=== PATIENT | male | born 1950 | race Caucasian/White ===

== ENCOUNTER 2017-05-26 20:10 | Emergency (ER) | payer OTHER ==
[~2017-05-26] VITALS: Ht 182.9 cm; Wt 106.1 kg
[~2017-05-26 20:10] MED LIST: ALBU90OI INH; AMOX500 PO; ATOR10 PO; Aspir 8181 MG PO; Ativan0.5 MG PO; CYCL10 PO; Ceftriaxone2 G1 IV; DABI75 PO; DIGO.25 PO; DOCU100 PO; EXFORGE; FURO20 PO; Glimepiride2 MG PO; HYDACE10 PO; HYDACE5 PO; HYDCHL25 PO; INS70/30I; LEVEMIR FL100 UNIT/1 SQ; LORA1 PO; LORA2 PO; LOSA50 PO; METF500 PO; METO25 PO; OLME20 PO; OMEP20ER PO; PRODEXEL PO; RXLORA1 PO; SILD50TA PO; SITA100T2 PO; SPIR25 PO; TAMS.4ER PO; Zithromax250 MG PO
== END 2017-05-26 23:50 | disposition left against medical advice (07) ==
LOC: ER 20:10
DX: Z53.21 Procedure and treatment not carried out due to patient leaving prior to being seen by health care provider (principal)
CPT/HCPCS: 99281

== ENCOUNTER 2017-07-31 07:36 | Emergency (ER) | payer OTHER ==
[~2017-07-31] VITALS: Ht 182.9 cm; Wt 105.0 kg
[2017-07-31] MEDS ORDERED: JARDIANCE10 MG PO (09:02)
[2017-07-31 09:14] LABS: Source, Urine Clean Catch
[2017-07-31 09:19] LABS: Bilirubin, Urine Neg (Neg); Blood, Urine Neg (Neg); Glucose Qualitative, Urine 4+ (Neg); Ketones, Urine Neg (Neg); Leukocyte Esterase, Urine Neg (Neg); Nitrite, Urine Neg (Neg); Protein, Urine Neg (Neg); Urobilinogen, Urine NORM (Normal)
[2017-07-31 09:30] LABS: Appearance, Urine Clear (Clear); Color, Urine Pale Yellow (P-Yellow)
== END 2017-07-31 10:36 | disposition home or self-care (01) ==
LOC: ER 07:36
PROVIDERS: Emergency Medicine
DX: I10 Essential (primary) hypertension (principal); E11.9 Type 2 diabetes mellitus without complications; Z88.5 Allergy status to narcotic agent; Z79.4 Long term (current) use of insulin; Z79.82 Long term (current) use of aspirin; Z79.51 Long term (current) use of inhaled steroids; Z79.899 Other long term (current) drug therapy
CPT/HCPCS: 36415; 81003; 82947; 84484; 93005; 93010; 99284

== ENCOUNTER 2018-07-21 01:51 | Emergency (ER) | payer OTHER ==
[~2018-07-21] VITALS: Ht 182.9 cm; Wt 104.3 kg
[~2018-07-21 01:51] MED LIST changes: +AMLO10 PO; +JARDIANCE10 MG PO; +LO-DOSE ASPIRIN81 MG PO; +LOSARTAN POTAS100 MG PO; +Metformin HCl1000 MG PO; +Metoprolol Tar100 MG PO; +TRULICITY0.75 MG/0. SQ
== END 2018-07-21 04:28 | disposition home or self-care (01) ==
LOC: ER 01:51
DX: M54.5 Low back pain (principal); Z88.5 Allergy status to narcotic agent; Z79.899 Other long term (current) drug therapy; Z79.84 Long term (current) use of oral hypoglycemic drugs; Z79.82 Long term (current) use of aspirin; I10 Essential (primary) hypertension; E11.9 Type 2 diabetes mellitus without complications; Z87.891 Personal history of nicotine dependence
CPT/HCPCS: 96372; 99283-25; J1885

== ENCOUNTER 2018-09-02 13:03 | Emergency (ER) | payer OTHER ==
[~2018-09-02] VITALS: Ht 180.3 cm; Wt 99.8 kg
[2018-09-02 13:56] LABS: BASOPHILS ABSOLUTE AUTO 0.08 K/mm3 (0.00-0.23); BASOPHILS PERCENT AUTO 1 % (0-2); EOSINOPHILS ABSOLUTE AUTO 0.27 K/mm3 (0.00-0.68); EOSINOPHILS PERCENT AUTO 3 % (0-6); Hematocrit 52.3 % (37.0-53.0); Hemoglobin 17.7 g/dL (13.5-17.5); IMMATURE GRAN ABSOLUTE AUTO 0.03 K/mm3 (0.00-0.10); IMMATURE GRAN PERCENT AUTO 0 % (0-1); LYMPHOCYTES ABSOLUTE AUTO 2.28 K/mm3 (0.84-5.20); LYMPHOCYTES PERCENT AUTO 24 % (21-46); MONOCYTES ABSOLUTE AUTO 0.84 K/mm3 (0.16-1.47); MONOCYTES PERCENT AUTO 9 % (4-13); Mean Corpuscular HGB 30.6 pg (26.0-34.0); Mean Corpuscular HGB Conc 33.8 g/dL (31.5-36.5); Mean Corpuscular Volume 90 fL (80-100); Mean Platelet Volume 10.5 fL (9.1-12.4); NEUTROPHILS ABSOLUTE AUTO 6.17 K/mm3 (1.96-9.15); NEUTROPHILS PERCENT AUTO 64 % (41-73); Platelet Count 241 K/mm3 (150-400); RDW Coefficient Variation 13.7 % (11.7-14.2); RDW Standard Deviation 45.6 fL (35.1-46.3); Red Blood Cell Count 5.79 M/mm3 (4.30-5.90); White Blood Cell Count 9.67 K/mm3 (4.00-11.30)
[2018-09-02 14:10] LABS: International Normalized Ratio 0.93; Prothrombin Time Results 9.7 Sec (9.7-11.5)
[2018-09-02 14:16] LABS: Alanine Aminotransfer (ALT/SGP 33 U/L (12-78); Alk Phos 131 U/L (50-136); Anion Gap 10 mmol/L (6-16); Aspartate Aminotrans (AST/SGOT 30 U/L (12-37); Bilirubin, Total 0.4 mg/dL (0.1-1.0); Blood Urea Nitrogen 17 mg/dL (8-24); Bun/Creatinine Ratio 19.9 (12.0-20.0); CO2, Blood 27 mmol/L (21-32); Calcium, Blood 9.7 mg/dL (8.5-10.1); Chloride, Blood 100 mmol/L (98-108); Creatinine, Blood 0.86 mg/dL (0.60-1.20); Glomerular Filtration Rate >60 (60-); Glucose, Blood 308 mg/dL (70-99); Potassium, Blood 4.2 mmol/L (3.5-5.5); Sodium, Blood 137 mmol/L (136-145)
[2018-09-02] MEDS ORDERED: JARDIANCE25 MG PO (15:50)
== END 2018-09-02 15:48 | disposition home or self-care (01) ==
LOC: ER 13:03
PROVIDERS: Physician Assistant
DX: E87.8 Other disorders of electrolyte and fluid balance, not elsewhere classified (principal); I25.10 Atherosclerotic heart disease of native coronary artery without angina pectoris; Z86.73 Personal history of transient ischemic attack (TIA), and cerebral infarction without residual deficits; Z88.5 Allergy status to narcotic agent; Z79.899 Other long term (current) drug therapy; Z79.84 Long term (current) use of oral hypoglycemic drugs; Z79.82 Long term (current) use of aspirin; I10 Essential (primary) hypertension; E11.9 Type 2 diabetes mellitus without complications; I25.2 Old myocardial infarction; Z87.891 Personal history of nicotine dependence
CPT/HCPCS: 36415; 70450; 80053; 84484; 85025; 85610; 85730; 93005; 93010; 99284-25

== ENCOUNTER 2018-09-03 12:12 | Emergency (ER) | payer OTHER ==
[~2018-09-03] VITALS: Ht 180.3 cm; Wt 99.8 kg
[~2018-09-03 12:12] MED LIST changes: +JARDIANCE25 MG PO
== END 2018-09-03 14:40 | disposition home or self-care (01) ==
LOC: ER 12:12
DX: I63.9 Cerebral infarction, unspecified (principal); I10 Essential (primary) hypertension; E11.9 Type 2 diabetes mellitus without complications; I48.91 Unspecified atrial fibrillation; E78.5 Hyperlipidemia, unspecified; Z87.891 Personal history of nicotine dependence
CPT/HCPCS: 99283

== ENCOUNTER 2021-02-01 16:22 | Emergency (ER) | payer OTHER ==
[~2021-02-01] VITALS: Ht 177.8 cm; Wt 104.3 kg
== END 2021-02-01 18:23 | disposition home or self-care (01) ==
LOC: ER 16:22
DX: S66.329A Laceration of extensor muscle, fascia and tendon of unspecified finger at wrist and hand level, initial encounter (principal); I10 Essential (primary) hypertension; E11.9 Type 2 diabetes mellitus without complications; I25.10 Atherosclerotic heart disease of native coronary artery without angina pectoris; I48.91 Unspecified atrial fibrillation; E78.5 Hyperlipidemia, unspecified; Z23 Encounter for immunization; Z88.5 Allergy status to narcotic agent; Z79.899 Other long term (current) drug therapy; Z79.84 Long term (current) use of oral hypoglycemic drugs; Z79.82 Long term (current) use of aspirin; W27.0XXA Contact with workbench tool, initial encounter
CPT/HCPCS: 12002; 73130; 90471; 90714; 99283-25

== ENCOUNTER 2023-05-19 04:45 | Inpatient (IN) | payer MEDICARE ==
[~2023-05-19] VITALS: Ht 177.8 cm; Wt 91.0 kg
[~2023-05-19 04:45] MED LIST changes: +INSULANI SC
[2023-05-19 05:32] LABS: BASOPHILS ABSOLUTE AUTO 0.07 K/mm3 (0.00-0.23); BASOPHILS PERCENT AUTO 1 % (0-2); EOSINOPHILS ABSOLUTE AUTO 0.38 K/mm3 (0.00-0.68); EOSINOPHILS PERCENT AUTO 4 % (0-6); Hematocrit 49.2 % (37.0-53.0); Hemoglobin 16.5 g/dL (13.5-17.5); IMMATURE GRAN ABSOLUTE AUTO 0.04 K/mm3 (0.00-0.10); IMMATURE GRAN PERCENT AUTO 0 % (0-1); LYMPHOCYTES PERCENT AUTO 21 % (21-46); MONOCYTES ABSOLUTE AUTO 0.95 K/mm3 (0.16-1.47); MONOCYTES PERCENT AUTO 10 % (4-13); Mean Corpuscular HGB 30.4 pg (26.0-34.0); Mean Corpuscular HGB Conc 33.5 g/dL (31.5-36.5); Mean Corpuscular Volume 91 fL (80-100); Mean Platelet Volume 10.3 fL (9.1-12.4); NEUTROPHILS PERCENT AUTO 64 % (41-73); Platelet Count 174 K/mm3 (150-400); RDW Coefficient Variation 13.8 % (11.7-14.2); RDW Standard Deviation 45.4 fL (35.1-46.3); Red Blood Cell Count 5.42 M/mm3 (4.30-5.90); White Blood Cell Count 9.84 K/mm3 (4.00-11.30)
[2023-05-19 05:56] LABS: Albumin, Blood 3.7 g/dL (3.4-5.0); Bilirubin, Total 0.7 mg/dL (0.1-1.0); Bun/Creatinine Ratio 15.7 (12.0-20.0); Creatinine, Blood 1.08 mg/dL (0.60-1.20); Globulin, Blood 3.7 g/dL (2.2-4.0); Potassium, Blood 4.3 mmol/L (3.5-5.5); Total Protein, Blood 7.4 g/dL (6.4-8.2)
[2023-05-19] MEDS ORDERED: IRBE150 PO (09:40)
[2023-05-19] MEDS ORDERED: PIOGLITAZONE HC15 MG PO (09:40)
[2023-05-19] MEDS ORDERED: SILDENAFIL CIT100 MG PO (09:41)
[2023-05-19] MEDS ORDERED: DICLOFENAC SODI50 GM TP (09:48)
[2023-05-19 10:15] VITALS: BP 161/80
== END 2023-05-19 12:29 | disposition home or self-care (01) | DRG 304 ==
LOC: ER 04:45 → ERHOLD 07:57
PROVIDERS: Emergency Medicine; ADMIT Hospitalist
DX: I16.1 Hypertensive emergency (principal); I50.21 Acute systolic (congestive) heart failure; I16.0 Hypertensive urgency; I25.10 Atherosclerotic heart disease of native coronary artery without angina pectoris; I48.91 Unspecified atrial fibrillation; I11.0 Hypertensive heart disease with heart failure; E11.9 Type 2 diabetes mellitus without complications; E78.5 Hyperlipidemia, unspecified; F40.240 Claustrophobia; F15.10 Other stimulant abuse, uncomplicated; R91.1 Solitary pulmonary nodule; Z88.8 Allergy status to other drugs, medicaments and biological substances; Z88.5 Allergy status to narcotic agent; Z79.84 Long term (current) use of oral hypoglycemic drugs; Z79.899 Other long term (current) drug therapy; Z79.4 Long term (current) use of insulin; Z71.51 Drug abuse counseling and surveillance of drug abuser; Z95.1 Presence of aortocoronary bypass graft; Z98.890 Other specified postprocedural states; Z87.891 Personal history of nicotine dependence
CPT/HCPCS: 71046; 80053; 83880; 84484; 85025; 93005; 93010; 96374; 96375; 99285-25; A9270; J0360; J1815; J1940

== ENCOUNTER 2023-05-19 18:45 | Emergency (ER) | payer MEDICARE ==
[~2023-05-19] VITALS: Ht 177.8 cm; Wt 106.6 kg
[~2023-05-19 18:45] MED LIST changes: +DICLOFENAC SODI50 GM TP; +IRBE150 PO; +PIOGLITAZONE HC15 MG PO; +SILDENAFIL CIT100 MG PO
[2023-05-19 23:09] VITALS: BP 169/92
== END 2023-05-19 23:20 | disposition left against medical advice (07) ==
LOC: ER 18:45
DX: R06.02 Shortness of breath (principal); Z53.29 Procedure and treatment not carried out because of patient's decision for other reasons
CPT/HCPCS: 99281

== ENCOUNTER 2023-05-21 09:46 | Observation (INO) | payer MEDICARE ==
[2023-05-21 11:22] LABS: BASOPHILS ABSOLUTE AUTO 0.06 K/mm3 (0.00-0.23); BASOPHILS PERCENT AUTO 1 % (0-2); EOSINOPHILS ABSOLUTE AUTO 0.31 K/mm3 (0.00-0.68); EOSINOPHILS PERCENT AUTO 3 % (0-6); Hematocrit 51.6 % (37.0-53.0); Hemoglobin 17.2 g/dL (13.5-17.5); IMMATURE GRAN ABSOLUTE AUTO 0.07 K/mm3 (0.00-0.10); IMMATURE GRAN PERCENT AUTO 1 % (0-1); LYMPHOCYTES ABSOLUTE AUTO 2.21 K/mm3 (0.84-5.20); LYMPHOCYTES PERCENT AUTO 18 % (21-46); MONOCYTES PERCENT AUTO 8 % (4-13); Mean Corpuscular HGB 30.1 pg (26.0-34.0); Mean Corpuscular HGB Conc 33.3 g/dL (31.5-36.5); Mean Corpuscular Volume 90 fL (80-100); Mean Platelet Volume 10.4 fL (9.1-12.4); NEUTROPHILS ABSOLUTE AUTO 8.94 K/mm3 (1.96-9.15); NEUTROPHILS PERCENT AUTO 71 % (41-73); Platelet Count 205 K/mm3 (150-400); RDW Coefficient Variation 13.8 % (11.7-14.2); RDW Standard Deviation 45.4 fL (35.1-46.3); Red Blood Cell Count 5.72 M/mm3 (4.30-5.90); White Blood Cell Count 12.59 K/mm3 (4.00-11.30)
[2023-05-21 11:46] LABS: Albumin, Blood 3.8 g/dL (3.4-5.0); Bilirubin, Total 0.7 mg/dL (0.1-1.0); Bun/Creatinine Ratio 20.8 (12.0-20.0); Calcium, Blood 9.7 mg/dL (8.5-10.1); Creatinine, Blood 0.91 mg/dL (0.60-1.20); Globulin, Blood 3.9 g/dL (2.2-4.0); Potassium, Blood 4.6 mmol/L (3.5-5.5); Total Protein, Blood 7.7 g/dL (6.4-8.2)
[2023-05-21 17:53] VITALS: BP 162/96
[2023-05-21 20:06] VITALS: BP 134/55
[2023-05-22 03:25] VITALS: BP 150/106
[2023-05-22 03:27] VITALS: BP 174/84
[2023-05-22 05:41] LABS: BASOPHILS ABSOLUTE AUTO 0.07 K/mm3 (0.00-0.23); BASOPHILS PERCENT AUTO 1 % (0-2); EOSINOPHILS ABSOLUTE AUTO 0.28 K/mm3 (0.00-0.68); EOSINOPHILS PERCENT AUTO 2 % (0-6); Hematocrit 51.4 % (37.0-53.0); Hemoglobin 17.1 g/dL (13.5-17.5); IMMATURE GRAN ABSOLUTE AUTO 0.05 K/mm3 (0.00-0.10); IMMATURE GRAN PERCENT AUTO 0 % (0-1); LYMPHOCYTES PERCENT AUTO 20 % (21-46); MONOCYTES ABSOLUTE AUTO 1.17 K/mm3 (0.16-1.47); MONOCYTES PERCENT AUTO 10 % (4-13); Mean Corpuscular HGB 30.1 pg (26.0-34.0); Mean Corpuscular HGB Conc 33.3 g/dL (31.5-36.5); Mean Corpuscular Volume 91 fL (80-100); Mean Platelet Volume 10.6 fL (9.1-12.4); NEUTROPHILS ABSOLUTE AUTO 8.13 K/mm3 (1.96-9.15); NEUTROPHILS PERCENT AUTO 67 % (41-73); Platelet Count 196 K/mm3 (150-400); RDW Coefficient Variation 13.6 % (11.7-14.2); RDW Standard Deviation 45.1 fL (35.1-46.3); Red Blood Cell Count 5.68 M/mm3 (4.30-5.90)
[2023-05-22 06:12] LABS: Bun/Creatinine Ratio 21.8 (12.0-20.0); Calcium, Blood 9.7 mg/dL (8.5-10.1); Creatinine, Blood 1.19 mg/dL (0.60-1.20); Potassium, Blood 3.9 mmol/L (3.5-5.5); Thyroid Stimulating Hormone 1.19 uIU/mL (0.360-4.800)
[2023-05-22 08:16] VITALS: BP 213/117
[2023-05-22] MEDS ORDERED: HYDCHL25 PO (08:58)
[2023-05-22] MEDS ORDERED: 1/2 NS 250ml250 ML (08:58)
[2023-05-22] MEDS ORDERED: Vitamin D1000 UNI1 PO (08:59)
[2023-05-22] MEDS ORDERED: ASPI81CH PO (09:00)
[2023-05-22] MEDS ORDERED: AMLO10 PO (09:01)
[2023-05-22 10:00] VITALS: BP 156/101
[2023-05-22 11:43] VITALS: BP 150/101
[2023-05-22] MEDS ORDERED: Naltrexone HCl50 MG PO (14:23)
[2023-05-22] MEDS ORDERED: BUPR150ER PO (14:23)
[2023-05-22] MEDS ORDERED: FURO40 PO (14:24)
== END 2023-05-22 14:37 | disposition home or self-care (01) ==
LOC: ER 09:46 → MEDS 09:47
PROVIDERS: Student in an Organized Health Care Education/Training Program; ADMIT Internal Medicine
DX: I11.0 Hypertensive heart disease with heart failure (principal); I50.21 Acute systolic (congestive) heart failure; I16.0 Hypertensive urgency; E11.9 Type 2 diabetes mellitus without complications; I48.91 Unspecified atrial fibrillation; I25.10 Atherosclerotic heart disease of native coronary artery without angina pectoris; F15.10 Other stimulant abuse, uncomplicated; E78.5 Hyperlipidemia, unspecified; Z79.84 Long term (current) use of oral hypoglycemic drugs; Z79.4 Long term (current) use of insulin; Z79.899 Other long term (current) drug therapy; Z88.8 Allergy status to other drugs, medicaments and biological substances; Z88.5 Allergy status to narcotic agent
CPT/HCPCS: 36415; 80048; 80053; 82947; 83880; 84443; 85025; 93005; 93010; 93306; 96374; 96375; 96376; 99285-25; A9270; G0378; J1815; J1940; J2060

== ENCOUNTER → 2023-08-31 | Outpatient (CLI) | payer MEDICARE ==
[~2023-08-31] MED LIST changes: +1/2 NS 250ml250 ML; +ASPI81CH PO; +BUPR150ER PO; +FURO40 PO; +Naltrexone HCl50 MG PO; +Vitamin D1000 UNI1 PO
[2023-08-31 12:04] LABS: BASOPHILS ABSOLUTE AUTO 0.09 K/mm3 (0.00-0.23); BASOPHILS PERCENT AUTO 1 % (0-2); EOSINOPHILS ABSOLUTE AUTO 0.41 K/mm3 (0.00-0.68); EOSINOPHILS PERCENT AUTO 3 % (0-6); Hematocrit 42.7 % (37.0-53.0); Hemoglobin 14.4 g/dL (13.5-17.5); IMMATURE GRAN ABSOLUTE AUTO 0.07 K/mm3 (0.00-0.10); IMMATURE GRAN PERCENT AUTO 1 % (0-1); LYMPHOCYTES ABSOLUTE AUTO 2.63 K/mm3 (0.84-5.20); LYMPHOCYTES PERCENT AUTO 20 % (21-46); MONOCYTES ABSOLUTE AUTO 1.14 K/mm3 (0.16-1.47); MONOCYTES PERCENT AUTO 9 % (4-13); Mean Corpuscular HGB 30.5 pg (26.0-34.0); Mean Corpuscular HGB Conc 33.7 g/dL (31.5-36.5); Mean Corpuscular Volume 91 fL (80-100); Mean Platelet Volume 10.3 fL (9.1-12.4); NEUTROPHILS ABSOLUTE AUTO 9.05 K/mm3 (1.96-9.15); NEUTROPHILS PERCENT AUTO 68 % (41-73); Platelet Count 203 K/mm3 (150-400); RDW Coefficient Variation 13.6 % (11.7-14.2); RDW Standard Deviation 45.2 fL (35.1-46.3); Red Blood Cell Count 4.72 M/mm3 (4.30-5.90); White Blood Cell Count 13.39 K/mm3 (4.00-11.30)
[2023-08-31 12:16] LABS: Albumin, Blood 3.5 g/dL (3.4-5.0); Albumin/Globulin Ratio 0.9 (0.8-1.8); Bilirubin, Total 0.7 mg/dL (0.1-1.0); Bun/Creatinine Ratio 18.7 (12.0-20.0); Creatinine, Blood 1.39 mg/dL (0.60-1.20); Globulin, Blood 3.9 g/dL (2.2-4.0); Potassium, Blood 4.6 mmol/L (3.5-5.5); Total Protein, Blood 7.4 g/dL (6.4-8.2)
== END | disposition home or self-care (01) ==
LOC: LAB 11:55 → LAB SHORT 11:55
PROVIDERS: Chiropractor
DX: N49.2 Inflammatory disorders of scrotum (principal)
CPT/HCPCS: 80053; 85025; 87070; 87075; 87077; 87147; 87186; 87205

== ENCOUNTER → 2023-09-02 | Outpatient (CLI) | payer MEDICARE ==
[2023-09-02 12:59] LABS: BASOPHILS ABSOLUTE AUTO 0.03 K/mm3 (0.00-0.23); BASOPHILS PERCENT AUTO 0 % (0-2); EOSINOPHILS PERCENT AUTO 5 % (0-6); Hematocrit 44.5 % (37.0-53.0); Hemoglobin 15.1 g/dL (13.5-17.5); IMMATURE GRAN ABSOLUTE AUTO 0.05 K/mm3 (0.00-0.10); IMMATURE GRAN PERCENT AUTO 1 % (0-1); LYMPHOCYTES ABSOLUTE AUTO 1.17 K/mm3 (0.84-5.20); LYMPHOCYTES PERCENT AUTO 12 % (21-46); MONOCYTES ABSOLUTE AUTO 1.17 K/mm3 (0.16-1.47); MONOCYTES PERCENT AUTO 12 % (4-13); Mean Corpuscular HGB 30.3 pg (26.0-34.0); Mean Corpuscular HGB Conc 33.9 g/dL (31.5-36.5); Mean Corpuscular Volume 89 fL (80-100); Mean Platelet Volume 10.6 fL (9.1-12.4); NEUTROPHILS ABSOLUTE AUTO 6.89 K/mm3 (1.96-9.15); NEUTROPHILS PERCENT AUTO 70 % (41-73); Platelet Count 213 K/mm3 (150-400); RDW Coefficient Variation 13.9 % (11.7-14.2); RDW Standard Deviation 44.7 fL (35.1-46.3); Red Blood Cell Count 4.99 M/mm3 (4.30-5.90); White Blood Cell Count 9.81 K/mm3 (4.00-11.30)
[2023-09-02 13:08] LABS: Albumin, Blood 3.5 g/dL (3.4-5.0); Albumin/Globulin Ratio 0.8 (0.8-1.8); Bilirubin, Total 0.8 mg/dL (0.1-1.0); Calcium, Blood 9.5 mg/dL (8.5-10.1); Creatinine, Blood 1.78 mg/dL (0.60-1.20); Globulin, Blood 4.3 g/dL (2.2-4.0); Total Protein, Blood 7.8 g/dL (6.4-8.2)
== END | disposition home or self-care (01) ==
LOC: LAB SHORT 12:51 → LAB 12:51
PROVIDERS: Chiropractor
DX: N49.2 Inflammatory disorders of scrotum (principal)
CPT/HCPCS: 80053; 83605; 85025

== ENCOUNTER → 2024-12-18 | Outpatient (CLI) | payer MEDICARE | LOC: LAB 11:33 → LAB SHORT 11:33 | DX: L02.612 Cutaneous abscess of left foot (principal); E11.42 Type 2 diabetes mellitus with diabetic polyneuropathy; Z79.4 Long term (current) use of insulin | CPT/HCPCS: 87070; 87075; 87077; 87147; 87186; 87205 ==

== ENCOUNTER 2024-12-27 19:13 | Emergency (ER) | payer MEDICARE ==
[~2024-12-27] VITALS: Ht 180.3 cm; Wt 95.2 kg
[2024-12-27 19:49] LABS: pH Blood Venous 7.34 (7.34-7.37)
[2024-12-27 19:53] LABS: BASOPHILS ABSOLUTE AUTO 0.08 K/mm3 (0.00-0.23); BASOPHILS PERCENT AUTO 1 % (0-2); EOSINOPHILS ABSOLUTE AUTO 0.42 K/mm3 (0.00-0.68); EOSINOPHILS PERCENT AUTO 3 % (0-6); Hematocrit 43.7 % (37.0-53.0); Hemoglobin 14.6 g/dL (13.5-17.5); IMMATURE GRAN ABSOLUTE AUTO 0.06 K/mm3 (0.00-0.10); IMMATURE GRAN PERCENT AUTO 1 % (0-1); LYMPHOCYTES ABSOLUTE AUTO 2.27 K/mm3 (0.84-5.20); LYMPHOCYTES PERCENT AUTO 18 % (21-46); MONOCYTES ABSOLUTE AUTO 1.00 K/mm3 (0.16-1.47); MONOCYTES PERCENT AUTO 8 % (4-13); Mean Corpuscular HGB Conc 33.4 g/dL (31.5-36.5); Mean Corpuscular Volume 88 fL (80-100); NEUTROPHILS ABSOLUTE AUTO 8.61 K/mm3 (1.96-9.15); NEUTROPHILS PERCENT AUTO 69 % (41-73); NRBC ABSOLUTE 0.00 K/mm3 (0.00-0.02); NRBC Auto 0.0 /100 WBC (0.0-0.2); Platelet Count 336 K/mm3 (150-400); RDW Coefficient Variation 13.5 % (11.7-14.2); RDW Standard Deviation 43.8 fL (35.1-46.3)
[2024-12-27] MEDS ORDERED: NS 1,000 ML IV SCH ×2 (20:05→20:35)
[2024-12-27 20:22] LABS: Alanine Aminotransfer (ALT/SGP 22.0 U/L (12-78); Albumin, Blood 3.5 g/dL (3.4-5.0); Albumin/Globulin Ratio 0.8 (0.8-1.8); Anion Gap 6.0 mmol/L (3-11); Aspartate Aminotrans (AST/SGOT 18.0 U/L (12-37); Bilirubin, Total 0.4 mg/dL (0.1-1.0); Blood Urea Nitrogen 39.0 mg/dL (8-24); CO2, Blood 32.0 mmol/L (21-32); Calcium, Blood 9.5 mg/dL (8.5-10.1); Chloride, Blood 98.0 mmol/L (98-108); Creatinine, Blood 2.01 mg/dL (0.60-1.20); Globulin, Blood 4.4 g/dL (2.2-4.0); Glucose, Blood 286.0 mg/dL (70-99); Potassium, Blood 5.0 mmol/L (3.5-5.5); Sodium, Blood 131.0 mmol/L (136-145); Total Protein, Blood 7.9 g/dL (6.4-8.2)
[2024-12-27 21:00] VITALS: BP 151/81
[2024-12-28] MEDS ORDERED: Crestor40 MG PO ×2 (15:16)
[2024-12-28] MEDS ORDERED: TORSE20 PO ×2 (15:18)
[2024-12-28] MEDS ORDERED: FLEX ×2 (15:22)
[2024-12-28] MEDS ORDERED: TOUJEO MAX300 UNIT/2 SC ×2 (15:24)
[2024-12-29] MEDS ORDERED: CEPHALEXIN500 M2 PO ×2 (11:04)
[2024-12-29] MEDS ORDERED: SULTRIDS PO ×2 (11:05)
[2024-12-29] MEDS ORDERED: VISBIOME 112.51 EACH PO ×2 (11:28)
[2024-12-29] MEDS ORDERED: CLIN300 PO ×2 (11:28)
[2024-12-29] MEDS ORDERED: HUMALOG KW100 UNIT/1 SC ×2 (11:31)
[2024-12-29] MEDS ORDERED: LACT PO ×2 (12:17)
== END 2024-12-27 22:40 | disposition home or self-care (01) ==
LOC: ER 19:13
PROVIDERS: Emergency Medicine
DX: E11.65 Type 2 diabetes mellitus with hyperglycemia (principal); N17.9 Acute kidney failure, unspecified; I10 Essential (primary) hypertension; E78.5 Hyperlipidemia, unspecified; Z88.5 Allergy status to narcotic agent; I48.91 Unspecified atrial fibrillation; Z79.899 Other long term (current) drug therapy; Z79.4 Long term (current) use of insulin; Z79.84 Long term (current) use of oral hypoglycemic drugs
CPT/HCPCS: 80053; 82803; 82947; 85025; 96360; 96361; 99284-25; J7030

== ENCOUNTER 2024-12-28 08:58 | Observation (INO) | payer MEDICARE ==
[~2024-12-28] VITALS: Ht 180.3 cm; Wt 96.7 kg
[2024-12-28 11:09] LABS: BASOPHILS ABSOLUTE AUTO 0.08 K/mm3 (0.00-0.23); BASOPHILS PERCENT AUTO 1 % (0-2); EOSINOPHILS ABSOLUTE AUTO 0.38 K/mm3 (0.00-0.68); EOSINOPHILS PERCENT AUTO 3 % (0-6); Hematocrit 43.6 % (37.0-53.0); Hemoglobin 14.3 g/dL (13.5-17.5); IMMATURE GRAN ABSOLUTE AUTO 0.06 K/mm3 (0.00-0.10); IMMATURE GRAN PERCENT AUTO 1 % (0-1); LYMPHOCYTES ABSOLUTE AUTO 2.09 K/mm3 (0.84-5.20); LYMPHOCYTES PERCENT AUTO 17 % (21-46); MONOCYTES ABSOLUTE AUTO 0.70 K/mm3 (0.16-1.47); MONOCYTES PERCENT AUTO 6 % (4-13); Mean Corpuscular HGB Conc 32.8 g/dL (31.5-36.5); Mean Corpuscular Volume 89 fL (80-100); NEUTROPHILS ABSOLUTE AUTO 8.79 K/mm3 (1.96-9.15); NEUTROPHILS PERCENT AUTO 73 % (41-73); NRBC ABSOLUTE 0.00 K/mm3 (0.00-0.02); NRBC Auto 0.0 /100 WBC (0.0-0.2); Platelet Count 290 K/mm3 (150-400); RDW Coefficient Variation 13.3 % (11.7-14.2); RDW Standard Deviation 43.7 fL (35.1-46.3)
[2024-12-28 11:34] LABS: Alanine Aminotransfer (ALT/SGP 20.0 U/L (12-78); Albumin, Blood 3.1 g/dL (3.4-5.0); Albumin/Globulin Ratio 0.7 (0.8-1.8); Anion Gap 6.0 mmol/L (3-11); Aspartate Aminotrans (AST/SGOT 18.0 U/L (12-37); Bilirubin, Total 0.4 mg/dL (0.1-1.0); Blood Urea Nitrogen 30.0 mg/dL (8-24); CO2, Blood 29.0 mmol/L (21-32); Calcium, Blood 9.0 mg/dL (8.5-10.1); Chloride, Blood 103.0 mmol/L (98-108); Creatinine, Blood 1.57 mg/dL (0.60-1.20); Globulin, Blood 4.4 g/dL (2.2-4.0); Glucose, Blood 150.0 mg/dL (70-99); Potassium, Blood 5.3 mmol/L (3.5-5.5); Sodium, Blood 133.0 mmol/L (136-145); Total Protein, Blood 7.5 g/dL (6.4-8.2)
[2024-12-28] MEDS ORDERED: Vancomycin (Pharmacy Consult) IV PRN (15:15)
[2024-12-28] MEDS ORDERED: Crestor40 MG PO (15:16)
[2024-12-28 15:18] VITALS: BP 157/84
[2024-12-28] MEDS ORDERED: TORSE20 PO (15:18)
[2024-12-28] MEDS ORDERED: FLEX (15:22)
[2024-12-28] MEDS ORDERED: TOUJEO MAX300 UNIT/2 SC (15:24)
[2024-12-28] MEDS ORDERED: CeFAZolin Sodium 2,000 MG in NS 100 ML IV SCH (15:25)
[2024-12-28] MEDS ORDERED: FentaNYL Citrate 50 MCG/ML 2 ML Injection IV PRN (15:25)
[2024-12-28] MEDS ORDERED: HydrALAZINE HCl 20 MG / ML 1ML Vial IV PRN (15:25)
[2024-12-28] MEDS ORDERED: NS 1,000 ML IV SCH (15:25)
--- NOTE | 2024-12-28 15:56 | NUR ---
CONSULT NOTE: CALLED DR. SORENSEN (DIRECTOR BIOSTATISTICS) AT [id number] TO CLARIFY PLAN OF CARE FOR PATIENT. PER DR. SORENSEN HE WILL DO THE SURGERY TOMORROW 12/29/24. NPO AT NE. PATIENT CAN HAVE DIET NOW AND ORDER IV VANCOMYCIN. NOTIFIED PHARMACIST, RONDA. PER RONDA SHE WILL PUT THE ORDER IN.
[2024-12-28] MEDS ORDERED: Vancomycin (Pharmacy Consult) IV SCH (16:00)
--- NOTE | 2024-12-28 16:21 | NUR ---
ADMISSION NOTE: PATIENT ARRIVES TO ROOM AT 1503 VIA WC. PATIENT AMBULATED TO BATHROOM/BACK IN BED INDEPENDENTLY, STEADY GAIT. PATIENT ADMISSION, MEDREC AND SKIN ASSESSMENT c 2 RN'S VERIFIED COMPLETED. PATIENT A/OX4, ANSWER TO QUESTIONS APPROPRIATELY AND ABLE TO MAKE NEEDS KNOWN. PATIENT ORIENTATED TO ROOM AND CALL SYSTEM. PATIENT DENIES CP/PRESSURE, SOB, N/V AND DIZZINESS. PATIENT REQUESTING "FOOD". PER PATIENT "THE LAST TIME I ATE WAS YESTERDAY AT DINNER. I HAVE NOT EAT SINCE. I'M HUNGRY AND NOT HAPPY RIGHT NOW. THEY TOLD ME THAT THEY ARE GOING TO DO A SURGERY TODAY. I HAVE BEEN WAITING IN ER SINCE THIS MORNING." PATIENT PROVIDED c TURKEY SANDWICH AND ICE WATER. ADMISSION VITALS TAKEN. PATIENT HAS PIV TO RAC INFUSING ABX PER ORDER. CALL LIGHT IN REACH. SPOUSE AT BEDSIDE.
[2024-12-28] MEDS ORDERED: Insulin Human Lispro 100 Units/ML 3ML Syringe SC SCH (16:30)
--- NOTE | 2024-12-28 17:53 | NUR ---
SHIFT NOTE: PATIENT HAS HAD NO CHANGES SINCE ADMITTED TO UNIT. PATIENT ON CONSISTENT CARB DIET c ACCU CHECK AC/HS. PATIENT BLOOD SUGAR BEFORE DINNER WAS 208, RECEIVED INSULIN PER [facility]AR COVERAGE. PATIENT EATING AND DRINKING WELL, CONTINENT OF BLADDER AND AMBULATES TO BATHROOM c SBA. PATIENT RECEIVED IV ABX PER ORDER. VITAL SIGNS REVIEWED. CALL LIGHT IN REACH. PATIENT WILL BE NPO AT SD FOR POSSIBLE SURGERY TO FOOT AT [address] SORENSEN.
[2024-12-28] MEDS ORDERED: Insulin Glargine,Hum.Rec.Anlog 100 UNIT/ML 3MLSYR SC SCH (21:00)
[2024-12-28 21:18] VITALS: BP 123/62
[2024-12-29] VITALS (12 sets, daily range): BP systolic 127–168; BP diastolic 66–81
[2024-12-29 05:31] LABS: BASOPHILS ABSOLUTE AUTO 0.08 K/mm3 (0.00-0.23); BASOPHILS PERCENT AUTO 1 % (0-2); EOSINOPHILS ABSOLUTE AUTO 0.36 K/mm3 (0.00-0.68); EOSINOPHILS PERCENT AUTO 3 % (0-6); Hematocrit 43.5 % (37.0-53.0); Hemoglobin 14.2 g/dL (13.5-17.5); IMMATURE GRAN ABSOLUTE AUTO 0.05 K/mm3 (0.00-0.10); IMMATURE GRAN PERCENT AUTO 0 % (0-1); LYMPHOCYTES ABSOLUTE AUTO 2.14 K/mm3 (0.84-5.20); LYMPHOCYTES PERCENT AUTO 19 % (21-46); MONOCYTES ABSOLUTE AUTO 0.90 K/mm3 (0.16-1.47); MONOCYTES PERCENT AUTO 8 % (4-13); Mean Corpuscular HGB Conc 32.6 g/dL (31.5-36.5); Mean Corpuscular Volume 89 fL (80-100); NEUTROPHILS ABSOLUTE AUTO 7.71 K/mm3 (1.96-9.15); NEUTROPHILS PERCENT AUTO 69 % (41-73); NRBC ABSOLUTE 0.00 K/mm3 (0.00-0.02); NRBC Auto 0.0 /100 WBC (0.0-0.2); Platelet Count 261 K/mm3 (150-400); RDW Coefficient Variation 13.3 % (11.7-14.2); RDW Standard Deviation 43.8 fL (35.1-46.3)
[2024-12-29 06:12] LABS: Anion Gap 6.0 mmol/L (3-11); Blood Urea Nitrogen 32.0 mg/dL (8-24); CO2, Blood 29.0 mmol/L (21-32); Calcium, Blood 8.8 mg/dL (8.5-10.1); Chloride, Blood 104.0 mmol/L (98-108); Creatinine, Blood 1.43 mg/dL (0.60-1.20); Glucose, Blood 206.0 mg/dL (70-99); Potassium, Blood 4.9 mmol/L (3.5-5.5); Sodium, Blood 134.0 mmol/L (136-145)
--- NOTE | 2024-12-29 06:23 | NUR ---
SHIFT SUMMARY PATIENT A/O X4. IND IN THE ROOM. VITAL SIGNS REMAINED STABLE. NO PAIN REPORTED. CONTINUED ABX. NO ACUTE CHANGES. WILL CONTNINE TO MONITOR AND REPORT TO ONCOMING RN.
[2024-12-29] MEDS ORDERED: Lidocaine HCL 1% 10 ML MDV ONE (07:13)
[2024-12-29] MEDS ORDERED: Bupivacaine 0.5% HCl 5 MG/ML 30MLVIAL ONE (07:13)
[2024-12-29] MEDS ORDERED: Torsemide 20 MG TAB PO SCH (09:00)
[2024-12-29] MEDS ORDERED: Cholecalciferol 1000 Unit Tablet (=25MCG) PO SCH (09:00)
[2024-12-29] MEDS ORDERED: CEPHALEXIN500 M2 PO (11:04)
[2024-12-29] MEDS ORDERED: SULTRIDS PO (11:05)
[2024-12-29] MEDS ORDERED: VISBIOME 112.51 EACH PO (11:28)
[2024-12-29] MEDS ORDERED: CLIN300 PO (11:28)
[2024-12-29] MEDS ORDERED: HUMALOG KW100 UNIT/1 SC (11:31)
[2024-12-29] MEDS ORDERED: LACT PO (12:17)
--- NOTE | 2024-12-29 13:20 | NUR ---
DISCAHRGE INSTRUCTIONS GOVEN TO PATIENT AND , BOTH STATED UNDERSTANDING, AND DENIED FURTHER QUESTIONS
== END 2024-12-29 13:10 | disposition home or self-care (01) ==
LOC: ER 08:58 → ERHOLD 08:59 → MEDS 08:59 → ERHOLD 08:59 → MEDS 14:57
PROVIDERS: Physician Assistant; Podiatrist Foot & Ankle Surgery; ADMIT Internal Medicine
PROC: 0Y9N0ZZ Drainage of Left Foot, Open Approach (ICD-10-PCS; principal; 2024-12-29 08:00)
DX: L02.612 Cutaneous abscess of left foot (principal); L03.116 Cellulitis of left lower limb; E11.9 Type 2 diabetes mellitus without complications; E78.5 Hyperlipidemia, unspecified; I11.0 Hypertensive heart disease with heart failure; I50.32 Chronic diastolic (congestive) heart failure; I25.10 Atherosclerotic heart disease of native coronary artery without angina pectoris; I48.0 Paroxysmal atrial fibrillation; Z95.1 Presence of aortocoronary bypass graft; Z79.84 Long term (current) use of oral hypoglycemic drugs; Z79.82 Long term (current) use of aspirin; Z79.4 Long term (current) use of insulin; Z79.899 Other long term (current) drug therapy; Z88.5 Allergy status to narcotic agent
CPT/HCPCS: 36415; 80048; 80053; 82947; 85025; 87070; 87075; 87205; 96365; 96366; 96375; 99285; A6253; A9270; G0378; J0690; J2003; J2704; J3373; J7030; J7040

== ENCOUNTER → 2025-01-02 | Outpatient (CLI) | payer MEDICARE ==
[~2025-01-02] MED LIST changes: +CEPHALEXIN500 M2 PO; +CLIN300 PO; +Crestor40 MG PO; +FLEX; +HUMALOG KW100 UNIT/1 SC; +LACT PO; +SULTRIDS PO; +TORSE20 PO; +TOUJEO MAX300 UNIT/2 SC; +VISBIOME 112.51 EACH PO
[2025-01-02 20:48] LABS: Creatinine, Urine Random 47.6 mg/dL (27.00-270.00); Microalb/Creat Ratio UR, Rand 655.462 mg/g (0.000-30.000); Microalbumin, Random Urine 312.0 mg/L (0.000-20.000)
== END | disposition home or self-care (01) ==
LOC: LAB 12:00 → LAB SHORT 12:00
PROVIDERS: Physician Assistant
DX: E11.22 Type 2 diabetes mellitus with diabetic chronic kidney disease (principal); N18.31 Chronic kidney disease, stage 3a; Z79.4 Long term (current) use of insulin
CPT/HCPCS: 82043; 82570